=== PATIENT | female | born 2000 | race Caucasian/White ===

== ENCOUNTER 2021-08-15 07:40 | Inpatient (IN) ==
[2021-08-15] MEDS ORDERED: Buffered Lidocaine 1% SYRIN 1 ml INTRADERM ONE ×2 (08:41→09:10)
[2021-08-15] MEDS ORDERED: Lactated Ringers 1000 ml BAG 1,000 ML IV ONE ×2 (09:10→19:57)
[2021-08-15 09:34] LABS: Urine Benzodiazepine Screen None Detected (None Detect); Urine Cannabinoids Screen None Detected (None Detect); Urine Opiates Screen None Detected (None Detect)
[2021-08-15] MEDS ORDERED: Lactated Ringers 1000 ml BAG 1,000 ML IV SCH ×3 (10:00→23:45)
[2021-08-15 10:45] LABS: ABS Lymphocytes 1.6 10^3/ul (1.0-4.8); ABS Monocytes 0.5 10^3/ul (0-0.8); ABS Neutrophils 8.3 10^3/ul (1.5-7.7); Eosinophil % 0.3 %; Hematocrit 37 % (35-47); Hemoglobin 12.8 g/dL (12.0-16.0); Lymphocyte % 15.4 %; Mean Corpuscular HGB Conc 35 g/dL (31-36); Mean Corpuscular Hemoglobin 32 pg (27-31); Mean Corpuscular Volume 93 fL (80-97); Mean Platelet Volume 9.6 fL (7.4-10.4); Platelet Count 160 10^3/uL (150-450); Red Cell Distribution Width 13 % (10-15); White Blood Count 10.5 10^3/uL (3.5-10.8)
[2021-08-15] MEDS ORDERED: Oxytocin in LR 20 UNITS/1,000 ML BAG IVPB SCH ×2 (14:00→23:45)
[2021-08-15] MEDS ORDERED: OBEPIDURAL 250 ML EPIDURAL ONE (19:07)
[2021-08-15] MEDS: Phenylephrine 40 mcg/mL 10mL (400mcg) SYRINGE IV PUSH PRN ×3 (19:49→20:32)
[2021-08-15] MEDS ORDERED: Sodium Citrate/Citric Acid LIQ 15 ML UDC PO PRN (19:57)
[2021-08-15] MEDS ORDERED: Phenylephrine 40 mcg/mL 10mL (400mcg) SYRINGE IV PUSH PRN (19:57)
[2021-08-15] MEDS ORDERED: EPHEDrine (Pressors) 50 MG/ML VIAL IV PUSH PRN ×2 (19:57)
[2021-08-15] MEDS ORDERED: OBEPIDURAL 250 ML EPIDURAL SCH (20:00)
[2021-08-15] MEDS ORDERED: Glycerin ADULT 2.4 gm SUPP PR PRN (23:47)
[2021-08-15] MEDS ORDERED: Witch Hazel PAD JAR TOPICAL PRN (23:47)
[2021-08-15] MEDS ORDERED: Dibucaine 1% OINT 28.35 GM TUBE PR PRN (23:47)
[2021-08-16 06:29] LABS: ABS Eosinophils 0.1 10^3/ul (0-0.6); ABS Neutrophils 9.9 10^3/ul (1.5-7.7); Eosinophil % 0.6 %; Hematocrit 33 % (35-47); Hemoglobin 11.7 g/dL (12.0-16.0); Lymphocyte % 15.3 %; Mean Corpuscular HGB Conc 35 g/dL (31-36); Mean Corpuscular Hemoglobin 33 pg (27-31); Mean Corpuscular Volume 93 fL (80-97); Mean Platelet Volume 9.4 fL (7.4-10.4); Platelet Count 141 10^3/uL (150-450); Red Blood Count 3.58 10^6 /uL (3.70-4.87); Red Cell Distribution Width 13 % (10-15); White Blood Count 12.9 10^3/uL (3.5-10.8)
[2021-08-17 08:14] VITALS: BP 103/63
[2021-08-17] MEDS ORDERED: Measles, Mumps,Rubella VACC 0.5 ML/VIAL SUBCUT ONE (13:16)
== END 2021-08-17 12:56 | disposition home or self-care (01) | DRG 560 ==
LOC: MCHOBOUT 07:40 → MCHOB 10:42
PROVIDERS: ADMIT Obstetrics & Gynecology; ATTEND Obstetrics & Gynecology